=== PATIENT | female | born 1950 | race Two or more races ===

== ENCOUNTER 2018-07-18 08:40 | Inpatient (IN) | payer MEDICARE, OTHER ==
[~2018-07-18] VITALS: Ht 160 cm; Wt 76.3 kg
[~2018-07-18 08:40] MED LIST: ASPI-605 PO; ENAL20TA70 PO; ESOM40CA PO; FLUT1DIS3 INH; HYDR-3974 PO; HYDR25SU33 RC; RIVA10TA PO; Sennosides PO; ZOLP5TAB2 PO; [UNRECOGNIZED DRUG - CODE] PO
--- NOTE | 2018-07-18 08:54 | NUR ---
DR BRAGG AT BEDSIDE FOR EVAL.
[2018-07-18] MEDS ORDERED: ASPIRIN 81 MG TAB.CHEW PO ONE (09:00)
[2018-07-18] MEDS ORDERED: ASPIRIN 81 MG TAB.CHEW ONE (09:00)
--- NOTE | 2018-07-18 09:03 | NUR ---
PT STATES TOOK ASP 81MG AT HOME PRIOR TO EMS ARRIVAL. VERBAL ORDER FOR ASPIRIN 81MG PO GIVEN INSTEAD OF 162MG.
--- NOTE | 2018-07-18 09:17 | NUR ---
RADIOLOGY AT BEDSIDE FOR CHEST XRAY.
--- NOTE | 2018-07-18 09:22 | NUR ---
MAP EDITOR AT BEDSIDE FOR EVAL.
[2018-07-18 09:27] LABS: BASOPHILS % (AUTO) 0.7 % (0.0-2.0); EOSINOPHILS % (AUTO) 0.7 % (0.0-6.0); HEMATOCRIT 42 % (33-45); HEMOGLOBIN 13.8 g/dL (11.5-14.8); LYMPHOCYTES # (AUTO) 0.8 /CMM (0.8-4.8); LYMPHOCYTES % (AUTO) 13.5 % (20.0-44.0); MEAN CORPUSCULAR HGB CONC 33 g/dl (31.0-36.0); MEAN CORPUSCULAR VOLUME 87 fL (82-100); MONOCYTES # (AUTO) 0.3 /CMM (0.1-1.30); MONOCYTES % (AUTO) 5.1 % (2.0-12.0); NEUTROPHILS # (AUTO) 4.9 /CMM (1.8-8.9); PLATELET COUNT (AUTO) 153 /CMM (150-450); RED BLOOD CELL COUNT(AUTO) 4.76 MIL/uL (4.0-5.2); WHITE BLOOD COUNT (AUTO) 6.1 K/uL (4.3-11.0)
[2018-07-18 09:35] LABS: CALCIUM, SERUM 8.8 mg/dL (8.5-10.1); CREATININE 0.8 mg/dL (0.6-1.3); POTASSIUM 4.1 mmol/L (3.5-5.1)
[2018-07-18] MEDS ORDERED: SENN-168 PO (09:59)
[2018-07-18] MEDS ORDERED: RIVA10TA PO (09:59)
--- NOTE | 2018-07-18 10:13 | NUR ---
PANEL ON-CALL PAGED
[2018-07-18] MEDS ORDERED: ONDANSETRON HCL/PF 4 MG/2 ML VIAL IVP PRN (10:30)
[2018-07-18] MEDS ORDERED: MAG HYDROX/AL HYDROX/SIMETH 30 ML UDC PO PRN (10:30)
[2018-07-18] MEDS ORDERED: Z GUARD REMEDY 2 OZ OINT TP PRN (10:30)
[2018-07-18] MEDS ORDERED: HYDROCODONE/APAP 5/325MG 1 EACH TABLET PO PRN (10:30)
[2018-07-18] MEDS ORDERED: ACETAMINOPHEN 325 MG TABLET PO PRN (10:30)
[2018-07-18] MEDS ORDERED: MAGNESIUM HYDROXIDE 30 ML UDC PO PRN (10:30)
--- NOTE | 2018-07-18 10:40 | NUR ---
TELE: [phone]
[2018-07-18] MEDS ORDERED: SENNOSIDES 8.6 MG TABLET PO PRN (11:00)
--- NOTE | 2018-07-18 11:03 | NUR ---
REPORT GIVEN TO YARELIS. AWAITING TRANSFER TO FLOOR.
[2018-07-18] MEDS ORDERED: HYDROMORPHONE 1 MG/1 ML DISP.SYRIN IV PRN (11:30)
[2018-07-18] MEDS ORDERED: ENALAPRIL MALEATE (10 MG) 10 MG TABLET PO SCH (11:30)
[2018-07-18 12:00] VITALS: BP 132/77
[2018-07-18] MEDS ORDERED: ENOXAPARIN SODIUM 80 MG/0.8 ML DISP.SYRIN SQ SCH (12:00)
[2018-07-18] MEDS: NITROGLYCERIN PACKET 1 GM PACKET TOP SCH ×3 (12:24→22:05)
[2018-07-18] MEDS: METOPROLOL TARTRATE 25 MG TABLET PO SCH ×2 (12:25→17:00)
[2018-07-18] MEDS: ENOXAPARIN SODIUM 80 MG/0.8 ML DISP.SYRIN SQ SCH ×2 (12:32→21:00)
[2018-07-18 13:00] VITALS: BP 132/77
--- NOTE | 2018-07-18 13:00 | NUR ---
ADMISSION NOTES PATIENT ADMITTED FROM ER 68Y/OLD FEMALE ON DX OF CHEST PAIN. PATIENT A/O X4, UZBEK SPEAKER, AMBULATORY SELF CARE. PATIENT HAS NO ACUTE RESPIRATORY DISTRESS, WAS COMPLAINING OF UPPER LEFT SIDE CHEST DULL PAIN 3/10 PER PAIN SCALE, BUT REFUSED PAIN MEDICATION. SCHEDULED MEDICATION ADMINISTERED, V/S TAKEN BP -132-/77, R-16, P-65, O2-97 ROOM AIR, T-97.7. PATIENT HAS IV ACCESS ON RIGHT AC AREA INTACT. SKIN ASSESSMENT DONE INTACT. PATIENT USING BATHROOM. CALL LIGHT WITHIN TO REACH. Dr. CARBALLO AWARE OF PATIENT CONDITION AND MEDICATION. CONTINUED MONITORING. Addendum: 07/18/18 at 1812 by JAQUELINE BIGGS RN PT TELE , EVAPORATOR ON, [id number].
[2018-07-18 16:00] VITALS: BP 108/64
--- NOTE | 2018-07-18 17:00 | NUR ---
RN NOTES PATIENT STABLE IN THE BED, SCHEDULED MEDICATION NOT ADMINISTERED BECAUSE BP -108/64, P-76, PATIENT COMPLAINING OF PAIN LEFT UPPER CHEST 2/10 PER PAIN SCALE. CALL LIGHT WITHIN TO REACH, CONTINUED MONITORING, PATIENT EATING, FAMILY NEXT TO THE BED.
--- NOTE | 2018-07-18 18:03 | NUR ---
RN NOTES ADMINISTERED TYLENOL 650 MG/PO PRN FOR CHEST PAIN 08/25 PER PATIENT REQUEST, CONTINUED MONITORING.
--- NOTE | 2018-07-18 18:40 | NUR ---
RN NOTES PATIENT STABLE, MEDICATION WERE ADMINISTERED FOR PAIN EFFECTIVE, PATIENT GOING TO TRANSFER TO THE [facility] FOR CARDIAC CATHETERIZATION PER DR BENITEZ. GET CALL FROM [facility] TBA FORM BE FAXED FOR PATIENT BED. ENDORSED ONCOMING NURSE FOR PLAN OF CARE.
--- NOTE | 2018-07-18 19:04 | NUR ---
RN NOTES RECEIVE PT IN THE BED A/O X 4, TELE MONITOR WITH READING OF SR 71. IN STABLE CONDITION, NOT IN DISTRESS, SAFETY MEASURES IN PLACE. WILL CONTINUE TO MONITOR.
[2018-07-18 20:00] VITALS: BP 111/71
--- NOTE | 2018-07-18 21:00 | NUR ---
RN NOTES CALLED ROSA (DAUGHTER) INFORMED PT TRANSFER FOR CARDIAC CATH ROSA APPRECIATIVE TO NURSES
--- NOTE | 2018-07-18 21:38 | NUR ---
PAGED AND SPOKE TO DR. GERMÁN Bull RELAYED IF WE GONNA GIVE LOVENOX PER DR. DUNLAP HOLD LOXENOX READ BACK AND VERIFIED ORDERS NOTED AND CARRIED OUT
--- NOTE | 2018-07-18 21:40 | NUR ---
REPORT GIVEN TO PATITO JUSTIN RN ANGELA NORTH
--- NOTE | 2018-07-18 21:41 | NUR ---
RN NOTES: MD MADE AWARE OF PT'S STATUS, FOR TRANSFER TO [facility] FOR CARDIAC CATHETERIZATION, OBTAINED DC ORDER FROM MD, INFORMED FAMILY AND PT'S AWARENESS OF PLAN. SPOKED WITH PT, OBTAINED CONSENT FOR TRANSFER, ALL DC PAPER WORKS AND TRANSFER PAPERS SIGNED BY PT HERSELF, EDUCATION PROVIDED TO PT, INVENTORY OF BELONGINGS COMPLETED BY MARK VERA. ALL CONVERSATION/COMMUNICATION TRANSLATED BY JAPANESE SPEAKING STAFF. CD IMAGES PROVIDED.
[2018-07-18] MEDS ORDERED: ATORVASTATIN 40 MG TABLET PO SCH (22:00)
[2018-07-18 22:05] VITALS: BP 126/69
[2018-07-18] MEDS ORDERED: hydrALAZINE HCL IV 20 MG VIAL IV PRN (22:30)
--- NOTE | 2018-07-18 22:38 | NUR ---
RN NOTES: RECEIVED CALL FROM ROSALINDA RN FROM [facility], STATED THERE'S A ROOM CHANGE, PT WILL BE GOING TO ROOM 4311-1, AND WAS TOLD NO NEED TO CALL FOR ANOTHER REPORT PT WILL BE GOING TO SAME FLOOR ONLY ROOM WAS CHANGED
--- NOTE | 2018-07-18 23:15 | NUR ---
PATIENT DISCHARGE PATIENT LEFT AT 2312, PATIENT ON STABLE CONDITION NO S/S OF DISTRESS NOTED, NO CHEST PAIN, NO HEADACHE, NO NAUSEA AND VOMITING, NO COMPLAINS OF PAIN, VS STABLE, TOLERATING ROOM AIR, HEALTH EDUCATION AND EXIT CARE WAS PROVIDED, IV HEPLOCK TO RAC 20 INTACT AND PATENT REMAINED PER [facility] NURSE PATITO. MD AWARE OF PATIENT BEING DISCHARGE, ALL BELONGINGS WAS TAKEN, PATIENT LEFT WITH 2 EMT VIA AMBULANCE.
[2018-07-19] MEDS ORDERED: PANTOPRAZOLE 40 MG TABLET.DR PO SCH (07:30)
[2018-07-19] MEDS ORDERED: CALCIUM CARB 600MG /VIT D 1 EACH TABLET PO SCH (09:00)
[2018-07-19] MEDS ORDERED: ASPIRIN 325 MG TABLET PO SCH (09:00)
[2018-07-19] MEDS ORDERED: FLUTICASONE/VILANTEROL 1 EACH BLST.W.DEV IH SCH (09:00)
== END 2018-07-18 23:10 | disposition short-term general hospital (02) | DRG 282 ==
LOC: ER 08:43 → TELE 10:46
PROVIDERS: ADMIT Internal Medicine; ATTEND Internal Medicine
DX: I21.4 Non-ST elevation (NSTEMI) myocardial infarction (principal); I10 Essential (primary) hypertension; K21.9 Gastro-esophageal reflux disease without esophagitis; Z96.641 Presence of right artificial hip joint; Z79.01 Long term (current) use of anticoagulants; J30.9 Allergic rhinitis, unspecified
CPT/HCPCS: 36415; 71045-TC; 80048-TC; 84484-TC; 85025-TC; 85730-TC; 87081-TC; 93307-TC; G0378; J1650

== ENCOUNTER 2022-05-06 14:35 | Inpatient (IN) | payer MEDICARE, OTHER ==
[~2022-05-06] VITALS: Ht 167.6 cm; Wt 82.6 kg
[~2022-05-06 14:35] MED LIST changes: -HYDR-3974 PO; -HYDR25SU33 RC; +SENN-261 PO; -Sennosides PO
--- NOTE | 2022-05-06 14:50 | NUR ---
Received pt 71 yrs famel came from home by lucinda S/P ground level fall awake and alert slap and fall at home c/o pain on lt hip with shorting and diformity
--- NOTE | 2022-05-06 14:55 | NUR ---
Examin by DR. SINHA
--- NOTE | 2022-05-06 15:00 | NUR ---
[facility]
--- NOTE | 2022-05-06 15:29 | NUR ---
CAKE ICER AT BEDSIDE FOR BLOOD DRAW
--- NOTE | 2022-05-06 15:30 | NUR ---
dr tatum (ortho) paged talking to dr gomez.
--- NOTE | 2022-05-06 15:38 | NUR ---
called nursing motion picture equipment supervisor for m/s bed.
[2022-05-06 15:42] LABS: BASOPHILS % (AUTO) 0.4 % (0.0-2.0); EOSINOPHILS % (AUTO) 1.1 % (0.0-6.0); HEMATOCRIT 41 % (33-45); HEMOGLOBIN 13.9 g/dL (11.5-14.8); LYMPHOCYTES # (AUTO) 1.2 K/uL (0.8-4.8); LYMPHOCYTES % (AUTO) 12.8 % (20.0-44.0); MEAN CORPUSCULAR HGB CONC 34 g/dl (31.0-36.0); MEAN CORPUSCULAR VOLUME 85 fL (82-100); MONOCYTES # (AUTO) 0.4 K/uL (0.1-1.30); MONOCYTES % (AUTO) 4.3 % (2.0-12.0); NEUTROPHILS # (AUTO) 7.5 K/uL (1.8-8.9); NEUTROPHILS % (AUTO) 81.4 % (43.0-81.0); PLATELET COUNT (AUTO) 166 K/uL (150-450); RED BLOOD CELL COUNT(AUTO) 4.87 MIL/uL (4.0-5.2); WHITE BLOOD COUNT (AUTO) 9.3 K/uL (4.3-11.0)
[2022-05-06] MEDS ORDERED: MECL-159 PO (15:52)
[2022-05-06] MEDS ORDERED: AMLO-213 PO (15:52)
[2022-05-06] MEDS ORDERED: DOCU50LI PO (15:52)
[2022-05-06] MEDS ORDERED: CLON0.1T MT (15:52)
[2022-05-06] MEDS ORDERED: MORPHINE SULFATE INJ 2 MG/ML DISP.SYRIN IV ONE (16:00)
[2022-05-06] MEDS ORDERED: MORPHINE SULFATE INJ 2 MG/ML DISP.SYRIN ONE (16:03)
[2022-05-06 16:09] LABS: CALCIUM, SERUM 9.1 mg/dL (8.5-10.1); CREATININE 0.9 mg/dL (0.6-1.3); POTASSIUM 4.2 mmol/L (3.5-5.1)
--- NOTE | 2022-05-06 16:15 | NUR ---
TEMO STEVENSON SENT TO LAB
--- NOTE | 2022-05-06 16:37 | NUR ---
called [facility]. dr angelo on phone talking to dr gomez.
[2022-05-06] MEDS ORDERED: ZOLPIDEM TARTRATE 5 MG TABLET PO PRN (17:30)
[2022-05-06] MEDS ORDERED: MAGNESIUM HYDROXIDE 30 ML UDC PO PRN (17:30)
[2022-05-06] MEDS ORDERED: HYDROCODONE/APAP 5/325MG TABLET PO PRN (17:30)
[2022-05-06] MEDS ORDERED: HYDROCODONE/APAP 10/325MG TABLET PO PRN (17:30)
[2022-05-06] MEDS ORDERED: CLONIDINE HCL 0.1 MG TABLET PO PRN (17:30)
[2022-05-06] MEDS ORDERED: ENALAPRIL MALEATE (10 MG) 10 MG TABLET PO SCH (17:30)
[2022-05-06] MEDS ORDERED: ONDANSETRON HCL/PF 4 MG/2 ML VIAL IVP PRN (17:30)
[2022-05-06] MEDS ORDERED: MAG HYDROX/AL HYDROX/SIMETH 30 ML UDC PO PRN (17:30)
[2022-05-06] MEDS ORDERED: ACETAMINOPHEN 325 MG TABLET PO PRN (17:30)
[2022-05-06] MEDS ORDERED: AMLODIPINE BESYLATE 10 MG TABLET ONE (17:32)
[2022-05-06] MEDS: AMLODIPINE BESYLATE 10 MG TABLET PO SCH (17:40)
--- NOTE | 2022-05-06 17:52 | NUR ---
WATING for moniter bed
[2022-05-06] MEDS ORDERED: LISINOPRIL (20MG) 20 MG TABLET PO SCH (18:00)
[2022-05-06] MEDS ORDERED: LISINOPRIL (20MG) 20 MG TABLET ONE (18:16)
[2022-05-06] MEDS: LISINOPRIL (10MG) 10 MG TABLET PO SCH (18:23)
--- NOTE | 2022-05-06 18:44 | NUR ---
ELISEO COSME SENT TO LAB
[2022-05-06] MEDS ORDERED: ONDANSETRON HCL/PF 4 MG/2 ML VIAL ONE (18:46)
[2022-05-06] MEDS ORDERED: KETOROLAC TROMETHAMINE INJ 30 MG/ML VIAL ONE (18:49)
[2022-05-06] MEDS: KETOROLAC TROMETHAMINE INJ 30 MG/ML VIAL IV PRN (18:55)
[2022-05-06] MEDS ORDERED: ONDANSETRON HCL/PF - ER 4 MG/2 ML VIAL IV ONE (19:00)
--- NOTE | 2022-05-06 19:29 | NUR ---
HAND OFF ELFEGO SHIN
--- NOTE | 2022-05-06 19:30 | NUR ---
PT IS AAOX4. ABLE TO MAKE NEEDS KNOWN. POSITIONED COMFORTABLY. HAS PERIPHERAL LINE ON LEFT AC G20. PATIENT IS COMPLAINING OF MILD PAIN ON LEFT HIP AREA. WILL CONTINUE TO MONITOR PATIENT.
--- NOTE | 2022-05-06 21:48 | NUR ---
IFC F16 INSERTED. DRAINING 600ML URINE
--- NOTE | 2022-05-06 23:07 | NUR ---
ASSIGNED 320
--- NOTE | 2022-05-07 01:32 | NUR ---
REPORT GIVEN TO ALEIDA MCCORMICK
[2022-05-07 02:10] VITALS: BP 134/76
--- NOTE | 2022-05-07 02:17 | NUR ---
TRANSFERRED PT TO ROOM
--- NOTE | 2022-05-07 02:18 | NUR ---
ELIGIBILITY MANAGER NOTES: --AT 0128 REPORT GIVEN BY GLARE/RN FROM ER, NEW ADMISSION FROM HOME FEMALE, 70 Y.O., S/P GLF WITH SEVERE LEFT HIP PAIN, ADMITTING DIAGNOSIS: LEFT FEMUR NECK FRACTURE, X-RAY OF THE PELVIS DONE: MILDLY DISPLACE SUBCAP[facility] FRACTURE OF THE LEFT FEMORAL NECK.LEFT LEG WAS EXTERNALLY ROTATED, A/OX4, NKDA, MCCRAY CATH IN SITE F-16/10 ML, V/S HER BP IS HIGH FROM ER SBP>200 SECONDARY TO PAIN AND ANXIOUS, RECEIVED THE FOLLOWING MEDICATION IN ER:1)VASOTEC 20 MG AT 1740 2)MORPHINE 2 MG AT 1613 3)ZOFRAN 4 MG AT 1849 4) PRINIVIL 40 MG AT 1800 5)TORADOL 30 MG AT 1855. COVID VACCINE COMPLETED, MRSA SWAB DONE, COVID RAPID(-), IV CANNULA ON THE LAC G#20.VACCINATION IS UP TO DATE. -AT 0205 ARRIVED IN THE MED-SURG UNIT ACCOMPANIED BY 2 ER STAFF VIA [facility], SHE HAS EXCRUCIATING PAIN DURING TRANSFER FROM [facility] TO THE BED,RN WANTS TO DO BODY ASSESSMENT BUT UNABLE TO REPOSITION HER TO SEE THE LEFT HIP AND BACK AREA SECONDARY TO PAIN, BODY ASSESSMENT DONE ON THE EXPOSED AREA ONLY:1)REDNESS ON THE FACIAL AREA 2)SWELLING AND DISCOLORATION ON THE RLE, LLE IMMOBILIZED, THE ENTIRE BACK WAS NOT SEEN.SHE IS A/OX4, PLEASANT AND COOPERATIVE, LOOKS ANXIOUS BLAMING HER SELF FOR THE INCIDENT, HER BP WAS HIGH,WILL RE-CHECK LATER, RN INSTRUCT TO DO SOME BREATHING EXERCISE TO RELAX HER. ORIENTED TO UNIT AND STAFF, KEPT CALL LIGHT WITHIN EASY REACH, WILL GIVE PAIN MEDICATION 04/24, ORTHO CONSULT DONE WITH DR. GRIFFITH FOR SURGERY TOMORROW:TOTAL LEFT HIP ARTHROPLASTY AT 1000.FOR LABS IN THE MORNING.NON LABORED BREATHING SPO2-98% ROOM AIR.SAFETY PRECAUTION OBSERVED.MCCRAY CATH DRAINING WELL OF YELLOWISH COLORED URINE AT 50 CC LEVEL.
[2022-05-07] MEDS: MORPHINE SULFATE INJ 2 MG/ML DISP.SYRIN IV PRN ×2 (02:41→08:17)
--- NOTE | 2022-05-07 02:41 | NUR ---
RN NOTES: PATIENT WAS GRIMACING AND GUARDING POSITION WHILE SHE WAS TRANSFERRED FROM [facility] TO THE BED,SHE IS ASKING FOR HER PAIN MEDICATION UPON ARRIVAL TO THE UNIT,HER BP WAS HIGH SECONDARY TO PAIN.IMMOBILIZED LEFT HIP. -PRN PAIN MEDS GIVEN FOR 10/10 PAIN.
--- NOTE | 2022-05-07 02:45 | NUR ---
RN NOTES: RN WAS ABOUT TO GIVE HER PAIN MEDICATION PER HER REQUEST, INITIALLY SHE WAS HESITANT, RN EXPLAINED SHE WILL BE KEPT NPO, PRIOR TO SURGERY AND THIS IS HER PRESCRIBED PAIN MEDICATION, WHICH WAS ALSO GIVEN TO HER IN ER AWHILE AGO.THEN SHE AGREE, GIVEN SLOWLY AND FLUSHING DONE, TOLERATED WELL. Addendum: 05/07/22 at 1143 by LEW HESTER RN ADDED NOTES: CHECK V/S AGAIN AFTER 30 MINUTES BP-134/76 PA-95
[2022-05-07 03:29] VITALS: BP 134/76
--- NOTE | 2022-05-07 03:49 | NUR ---
RN NOTES: -ABLE TO SLEEP AND REST HER BLOOD PRESSURE WAS MORE LOWER COMPARED UPON HER ARRIVAL FROM ER, SHE WAS SO ANXIOUS AND WORRIED LATEST BP-130/80.
--- NOTE | 2022-05-07 04:23 | NUR ---
RN NOTES: -KEPT NPO, ASLEEP, KEPT IN COMFORTABLE POSITION, LLE IMMOBILIZED.KEPT CALL LIGHT WITHIN EASY REACH.
[2022-05-07 05:56] LABS: BASOPHILS % (AUTO) 0.3 % (0.0-2.0); EOSINOPHILS % (AUTO) 1.1 % (0.0-6.0); HEMATOCRIT 40 % (33-45); HEMOGLOBIN 13.3 g/dL (11.5-14.8); LYMPHOCYTES # (AUTO) 1.1 K/uL (0.8-4.8); MEAN CORPUSCULAR HGB CONC 33 g/dl (31.0-36.0); MEAN CORPUSCULAR VOLUME 85 fL (82-100); MONOCYTES # (AUTO) 0.4 K/uL (0.1-1.30); MONOCYTES % (AUTO) 4.3 % (2.0-12.0); NEUTROPHILS # (AUTO) 7.5 K/uL (1.8-8.9); NEUTROPHILS % (AUTO) 82.3 % (43.0-81.0); PLATELET COUNT (AUTO) 160 K/uL (150-450); RED BLOOD CELL COUNT(AUTO) 4.73 MIL/uL (4.0-5.2); WHITE BLOOD COUNT (AUTO) 9.1 K/uL (4.3-11.0)
--- NOTE | 2022-05-07 06:40 | NUR ---
RN NOTES: ABLE TO SLEEP AND REST AFTER HER PAIN MEDICATION, RN EXPLAINED TO HER SHE NEEDS TO SIGN THE CONSENT FOR HER PROCEDURE, SHE SAID "LATER ON I WANT TO SLEEP", KEPT NPO, KEPT IN COMFORTABLE POSITION, CALL LIGHT WITHIN EASY EACH, NON LABORED BREATHING.ENDORSED FOR CONTINUITY OF CARE, NEED TO OBTAIN CONSENT AND TO COMPLETE PRE-OP CHECK LIST, MCCRAY CATH [id number].FOR LABS THIS MORNING
[2022-05-07 06:49] LABS: CALCIUM, SERUM 8.5 mg/dL (8.5-10.1); PHOSPHORUS 4.3 mg/dL (2.5-4.9); POTASSIUM 4.2 mmol/L (3.5-5.1)
--- NOTE | 2022-05-07 07:00 | NUR ---
MS RN OPENING NOTES PATIENT LAYING IN BED, A/O X 3, ABLE TO MAKE NEEDS KNOWN, TOLERATING WELL ON ROOM AIR WITH NO S/S RESPIRATORY DISTRESS. NPO STATUS FOR UPCOMING SURGERY. R AC # 20 G SL CLEAN, INTACT, AND FLUSHING WELL. MCCRAY CATHETER IN PLACE DRAINING CLEAR YELLOW URINE TO GRAVITY. SAFETY MEASURES IN PLACE: BED IN LOWEST LOCKED POSITION, SIDE RAILS UP X 2, CALL LIGHT WITHIN REACH. WILL CONTINUE TO MONITOR.
[2022-05-07] MEDS: PANTOPRAZOLE 40 MG TABLET.DR PO SCH (07:30)
--- NOTE | 2022-05-07 08:31 | NUR ---
MS RN NOTES PATIENT COMPLAINT OF 7/10 LEFT HIP PAIN AND REQUESTING PAIN MEDICATION. PRN MORPHINE 2 MG IVP ADMINISTERED ORDERED. WILL CONTINUE TO MONITOR FOR S/S PAIN. ALL CONSENTS OBTAINED FOR LEFT HIP ARTHROPLASTY.
[2022-05-07] MEDS: DOCUSATE SODIUM LIQ 100 MG/10 ML UDC PO SCH ×3 (08:32→17:00)
[2022-05-07] MEDS: AMLODIPINE BESYLATE 10 MG TABLET PO SCH (08:32)
[2022-05-07] MEDS: LISINOPRIL (10MG) 10 MG TABLET PO SCH (08:32)
[2022-05-07] MEDS ORDERED: ANESTHESIA TRAY IN PYXIS 1 EA TRAY MC ONE (09:15)
[2022-05-07] MEDS ORDERED: POLYMYXIN B SULFATE 500,000 UNITS ONE (09:15)
[2022-05-07] MEDS ORDERED: BUPIVACAINE 0.25% 75 MG/30 ML VIAL ONE (09:16)
[2022-05-07] MEDS ORDERED: FENTANYL PF 100MCG/2ML AMPUL ONE (09:36)
[2022-05-07] MEDS ORDERED: ROCURONIUM BROMIDE 50 MG/5 ML ONE (09:36)
[2022-05-07] MEDS ORDERED: TRANEXAMIC ACID 3,000 MG in SODIUM CHLORIDE IRRIG SOLUTION 70 ML IR ONE (10:00)
[2022-05-07] MEDS ORDERED: ONDANSETRON HCL/PF 4 MG/2 ML VIAL ONE (12:41)
[2022-05-07 12:59] LABS: HEMOGLOBIN 11.1 g/dL (11.5-14.8)
[2022-05-07] MEDS ORDERED: SENNOSIDES 8.6 MG TABLET PO PRN (13:30)
[2022-05-07] MEDS ORDERED: ONDANSETRON HCL/PF 4 MG/2 ML VIAL IVP PRN (13:30)
[2022-05-07] MEDS ORDERED: BISACODYL SUPP (10 MG) 10 MG/SUPP.RECT SUPP.RECT RC PRN (13:30)
[2022-05-07] MEDS ORDERED: HYDROCODONE/APAP 5/325MG TABLET PO PRN (13:30)
[2022-05-07] MEDS ORDERED: ACETAMINOPHEN 325 MG TABLET PO PRN (13:30)
[2022-05-07] MEDS ORDERED: DOCUSATE SODIUM 100 MG CAPSULE PO PRN (13:30)
[2022-05-07] MEDS: ANCEF 1 GM/50 ML D5W IV SCH ×2 (18:34)
[2022-05-07 20:00] VITALS: BP 116/64
--- NOTE | 2022-05-07 20:00 | NUR ---
MS RN OPENING NOTES: RECEIVED PATIENT AWAKE IN BED, IN LOW POSTION CALL LIGHTS WITHIN REACH, NO COMPLAIN OF PAIN AND DISCOMFORT AT THIS TIME, ON ROOM AIR SATURATING WELL, PATIENT IS A/OX3 ABLE TO MAKE NEEDS KNOWN, IV LINE AT RAC#20SL, ON MCCRAY CATHETER- 50CC URINE OUTPUT , PATIENT KEPT CLEAN AND DRY ALL NEEDS MET WILL CONTINUE TO MONITOR
[2022-05-07 20:35] VITALS: BP 116/64
[2022-05-08] MEDS: ANCEF 1 GM/50 ML D5W IV SCH ×2 (02:53)
--- NOTE | 2022-05-08 06:10 | NUR ---
MS RN CLOSING NOTES: PATIENT SLEEP IN BED COMFORTABLY, BED IN LOW POSITION CALL LIGHTS WITHIN REACH, ON ROOM AIR SATURATING WELL, PATIENT IS A/OX3-4 ABLE TO MAKE NEEDS KNOWN, PATIENT IS S/P TOTAL LEFT HIP ARTHROPLASTY, NO COMPLAIN OF PAIN AND OR FACIAL GRIMACING, KEPT CLEAN AND DRY ALL NEEDS MET ENDORSE TO INCOMING SHIFT.
[2022-05-08 07:44] LABS: ALKALINE PHOSPHATASE 53 U/L (46-116); ASPARTATE AMINOTRANSFERASE 24 U/L (15-37); BASOPHILS % (AUTO) 0.1 % (0.0-2.0); BILIRUBIN,TOTAL 0.5 mg/dL (0.2-1.0); CALCIUM, SERUM 8.5 mg/dL (8.5-10.1); CARBON DIOXIDE 23 mmol/L (21-32); CHLORIDE 106 mmol/L (98-107); EOSINOPHILS % (AUTO) 0.1 % (0.0-6.0); GLUCOSE 146 mg/dL (74-106); HEMATOCRIT 29 % (33-45); HEMOGLOBIN 9.8 g/dL (11.5-14.8); LYMPHOCYTES # (AUTO) 0.8 K/uL (0.8-4.8); LYMPHOCYTES % (AUTO) 6.9 % (20.0-44.0); MAGNESIUM 2.1 mg/dL (1.8-2.4); MEAN CORPUSCULAR HGB CONC 33 g/dl (31.0-36.0); MEAN CORPUSCULAR VOLUME 85 fL (82-100); MONOCYTES # (AUTO) 0.8 K/uL (0.1-1.30); MONOCYTES % (AUTO) 6.4 % (2.0-12.0); NEUTROPHILS # (AUTO) 10.4 K/uL (1.8-8.9); NEUTROPHILS % (AUTO) 86.5 % (43.0-81.0); PHOSPHORUS 5.5 mg/dL (2.5-4.9); PLATELET COUNT (AUTO) 160 K/uL (150-450); POTASSIUM 4.6 mmol/L (3.5-5.1); RED BLOOD CELL COUNT(AUTO) 3.45 MIL/uL (4.0-5.2); SODIUM SERUM 137 mmol/L (136-145); UREA NITROGEN, BLOOD 25 mg/dL (7-18); WHITE BLOOD COUNT (AUTO) 12.1 K/uL (4.3-11.0)
[2022-05-08 08:00] VITALS: BP 101/68
[2022-05-08 08:06] LABS: ALANINE AMINOTRANSFERASE 26 U/L (12-78)
[2022-05-08] MEDS: AMLODIPINE BESYLATE 10 MG TABLET PO SCH (09:00)
[2022-05-08] MEDS: LISINOPRIL (10MG) 10 MG TABLET PO SCH (09:00)
[2022-05-08] MEDS: DOCUSATE SODIUM LIQ 100 MG/10 ML UDC PO SCH ×3 (09:00→17:00)
[2022-05-08] MEDS: KETOROLAC TROMETHAMINE INJ 30 MG/ML VIAL IV PRN (09:07)
[2022-05-08] MEDS: PANTOPRAZOLE 40 MG TABLET.DR PO SCH (09:07)
[2022-05-08] MEDS: ENOXAPARIN SODIUM 40 MG/0.4 ML DISP.SYRIN SQ SCH (09:10)
[2022-05-08 16:00] VITALS: BP 102/60
--- NOTE | 2022-05-08 18:40 | NUR ---
RN CLOSING NOTE PATIENT RECEIVED IN BED AND SLEEPING. A/O X4 AND ABLE TO VERBALIZE NEEDS THROUGHOUT SHIFT. IV ACCESS TO RAC REMAINED INTACT AND PATENT. SALINE LOCKED AT THIS TIME. PATIENT C/O PAIN TO SURGICAL SITE OF LEFT HIP ONCE ON SHIFT. RECEIVED TORADOL X1 VIA IV PUSH. MEDICATION EFFECTIVE. NO OTHER C/O PAIN OR OBSERVATIONS OF ACUTE DISTRESS OBSERVED. PATIENT OBSERVED WORKING WITH PHYSICAL THERAPY ON SHIFT. TOLERATED TREATMENT WELL. CONTINUED TO TOLERATE CARDIAC DIET WELL THROUGHOUT SHIFT. SURGICAL SITE/INCISIONS KEPT DRY WITH NO S/SX OF TRAUMA, BLEEDING, INFECTION. MCCRAY CATHETER OUTPUT OF 500CC ON SHIFT. SAFETY PRECAUTIONS IN PLACE WITH BED LOW AND LOCKED. CALL LIGHT WITHIN REACH. WILL CONTINUE TO MONITOR.
--- NOTE | 2022-05-08 19:30 | NUR ---
MS RN OPENING NOTES: RECEIVED PATIENT AWAKE IN BED, BED IN LOW POSITION, CALL LIGHTS WITHIN REACH, NO COMPLAIN OF PAIN AND DISCOMFORT AT THIS TIME, ON ROOM AIR SATURATING WELL, NO SOB WAS OBSERVED, ON MCCRAY CATHETER-30CC URINE OUTPUT, PATIENT IS A/OX3-4 ABLE TO MAKE NEEDS KNOWN, IV LINE AT RAC#20SL, PATIENT KEPT CLEAN AND DRY ALL NEEDS MET WILL CONTINUE TO MONITOR.
[2022-05-08 20:00] VITALS: BP 110/68
--- NOTE | 2022-05-09 06:16 | NUR ---
MS RN CLOSING NOTES: PATIENT SLEEP IN BED COMFORTABLY, AROUSABLE TO VERBAL STIMULI, BED IN LOW POSITION CALL LIGHTS WITHIN REACH, NO COMPLAIN OF PAIN AND DISCOMFORT AT THIS TIME, ON ROOM AIR SATURATING WELL, PATIENT ON MCCRAY CATHETER- 400 CC URINE OUTPUT. KEPT CLEAN AND DRY ALL NEEDS MET ENDORSE TO INCOMING SHIFT.
[2022-05-09 06:57] LABS: BASOPHILS % (AUTO) 0.2 % (0.0-2.0); EOSINOPHILS % (AUTO) 1.1 % (0.0-6.0); HEMATOCRIT 26 % (33-45); HEMOGLOBIN 8.7 g/dL (11.5-14.8); LYMPHOCYTES # (AUTO) 1.3 K/uL (0.8-4.8); LYMPHOCYTES % (AUTO) 17.9 % (20.0-44.0); MEAN CORPUSCULAR HGB CONC 34 g/dl (31.0-36.0); MEAN CORPUSCULAR VOLUME 86 fL (82-100); MONOCYTES # (AUTO) 0.6 K/uL (0.1-1.30); MONOCYTES % (AUTO) 8.7 % (2.0-12.0); NEUTROPHILS # (AUTO) 5.2 K/uL (1.8-8.9); NEUTROPHILS % (AUTO) 72.1 % (43.0-81.0); PLATELET COUNT (AUTO) 136 K/uL (150-450); RED BLOOD CELL COUNT(AUTO) 3.01 MIL/uL (4.0-5.2); WHITE BLOOD COUNT (AUTO) 7.2 K/uL (4.3-11.0)
[2022-05-09 07:00] VITALS: BP 126/62
[2022-05-09 07:25] LABS: ALANINE AMINOTRANSFERASE 24 U/L (12-78); ALBUMIN 2.9 g/dL (3.4-5.0); ALKALINE PHOSPHATASE 45 U/L (46-116); ASPARTATE AMINOTRANSFERASE 17 U/L (15-37); BILIRUBIN,TOTAL 0.4 mg/dL (0.2-1.0); CALCIUM, SERUM 8.3 mg/dL (8.5-10.1); CARBON DIOXIDE 27 mmol/L (21-32); CHLORIDE 107 mmol/L (98-107); GLUCOSE 111 mg/dL (74-106); MAGNESIUM 2.2 mg/dL (1.8-2.4); PHOSPHORUS 2.8 mg/dL (2.5-4.9); POTASSIUM 4.2 mmol/L (3.5-5.1); SODIUM SERUM 140 mmol/L (136-145); TOTAL PROTEIN, SERUM 5.8 g/dL (6.4-8.2); UREA NITROGEN, BLOOD 34 mg/dL (7-18)
--- NOTE | 2022-05-09 07:50 | NUR ---
RN OPENING NOTE PATIENT RECEIVED IN BED AND SLEEPING. A/O X4. NO RESPIRATORY DISTRESS OBSERVED UPON ASSESSMENT. SAFETY MEASURES INTACT WITH BED LOW AND LOCKED. CALL LIGHT WITHIN REACH. WILL CONT TO MONITOR.
[2022-05-09 08:59] VITALS: BP 126/62
[2022-05-09] MEDS: DOCUSATE SODIUM LIQ 100 MG/10 ML UDC PO SCH ×2 (08:59→18:10)
[2022-05-09] MEDS: LISINOPRIL (10MG) 10 MG TABLET PO SCH (08:59)
[2022-05-09] MEDS: AMLODIPINE BESYLATE 10 MG TABLET PO SCH (08:59)
[2022-05-09] MEDS: ENOXAPARIN SODIUM 40 MG/0.4 ML DISP.SYRIN SQ SCH (09:01)
[2022-05-09] MEDS: PANTOPRAZOLE 40 MG TABLET.DR PO SCH (09:03)
[2022-05-09] MEDS: KETOROLAC TROMETHAMINE INJ 30 MG/ML VIAL IV PRN (13:42)
--- NOTE | 2022-05-09 18:39 | NUR ---
RN CLOSING NOTE PATIENT REMAINED A/O X4 AND ABLE TO VERBALIZE NEEDS THROUGHOUT SHIFT. IV ACCESS TO RAC REMAINED INTACT AND PATENT AND SALINE LOCKED AT THIS TIME. PATIENT REQUESTED PRN PAIN MEDICATION PRIOR TO PT THERAPY. RECEIVED TORADOL X1 VIA IV PUSH @ 1342. MEDICATION EFFECTIVE. NO OTHER C/O PAIN OR OBSERVATIONS OF ACUTE DISTRESS OBSERVED. TOLERATED PT TREATMENT WELL. CONTINUED TO TOLERATE CARDIAC DIET WELL THROUGHOUT SHIFT. SURGICAL SITE/INCISIONS KEPT DRY WITH NO S/SX OF TRAUMA, BLEEDING, INFECTION. MCCRAY CATHETER OUTPUT OF 500CC ON SHIFT. PATIENT SCHEDULED FOR DISCHARGE AND HEALTH ASSISTANT FROM FACILITY TO [facility] @ 1930. REPORT GIVEN TO RECEIVING NURSE, APPLE @ 1750. PATIENT AWARE OF TRANSFER. WILL ENDORSE TO ONCOMING NURSE. SAFETY PRECAUTIONS IN PLACE WITH BED LOW AND LOCKED. CALL LIGHT WITHIN REACH. WILL CONTINUE TO MONITOR.
--- NOTE | 2022-05-09 19:30 | NUR ---
MS RN OPENING NOTES RECEIVED PATIENT LYING IN BED ASLEEP, EASY TO AROUSE. A/O X4. NO SOB OR NOTED, TOLERATING ROOM AIR WELL. NOT IN ACUTE DISTRESS. C/O MILD PAIN ON HER LEFT HIP. HAS LEFT ANTECUBITAL IV ACCESS #20G AND SALINE LOCKED. NO S/S OF INFILTRATION NOTED. HAS INDWELLING MCCRAY CATHETER DRAINING CLEAR NORMA URINE TO BAG BY GRAVITY. LEFT HIP SURGICAL DRESSING C/D/I. SAFETY MEASURES IN PLACE: BED LOW AND LOCKED, SIDE RAILS UP X2, CALL LIGHT WITHIN REACH. WILL CONTINUE POC.
[2022-05-09] MEDS: MORPHINE SULFATE INJ 2 MG/ML DISP.SYRIN IV PRN (20:23)
--- NOTE | 2022-05-09 20:23 | NUR ---
MS RN NOTES PATIENT REFUSED PRN MORPHINE AND REQUESTED TO HAVE NORCO INSTEAD. WASTED MED WITNESSED BY RAMON PEOPLES RN.
--- NOTE | 2022-05-09 20:24 | NUR ---
MS RN NOTES PATIENT VERBALIZED SHE FEELS A LOT OF PAIN ON HER LEFT HIP WHENEVER SHE GETS MOVED OR AMBULATES. ADMINISTERED PRN NORCO 10/325, VS CHECKED PRIOR TO BEING DISCHARGED, TOLERATED WELL.
--- NOTE | 2022-05-09 20:39 | NUR ---
MS BANK NOTE DESIGNER NOTES PATIENT IN ROOM AWAKE, A/O X4. ABLE TO VERBALIZE NEEDS. BREATHING EVEN AND NON-LABORED ON ROOM AIR. NOT IN APPARENT DISTRESS. C/O PAIN ON HER LEFT HIP, S/P TOTAL LEFT HIP ARTHROPLASTY LAST 05/07/22. SURGICAL DRESSING C/D/I. HAS LEFT ANTECUBITAL IV ACCESS #20G AND SALINE LOCKED. INTACT, PATENT AND FLUSHING. HAS MCCRAY CATHETER URINE OUTPUT OF 500 ML. ALL BELONGINGS ACCOUNTED FOR AND TAKEN BY THE PATIENT. PICKED-UP BY 1 MALE AND 1 FEMALE EMT VIA [facility] @ 2024 TO BE TRANSFERRED TO [facility]. PATIENT DISCHARGE PACKET GIVEN TO EMT. SPOKE WITH ALEIDA MIGUEL AND GAVE REPORT. PATIENT LEFT IN STABLE CONDITION.
== END 2022-05-09 20:30 | DRG 522 ==
LOC: ER 14:47 → TRANSITION 17:28 → MED 23:21
PROC: 0SRB0JZ Replacement of Left Hip Joint with Synthetic Substitute, Open Approach (ICD-10-PCS; principal; 2022-05-07)
DX: S72.012A Unspecified intracapsular fracture of left femur, initial encounter for closed fracture (principal); J30.9 Allergic rhinitis, unspecified; W18.30XA Fall on same level, unspecified, initial encounter; Z20.822 Contact with and (suspected) exposure to COVID-19; I25.2 Old myocardial infarction; Z79.82 Long term (current) use of aspirin; Z86.011 Personal history of benign neoplasm of the brain; Z79.01 Long term (current) use of anticoagulants; I10 Essential (primary) hypertension; Y93.89 Activity, other specified; Z96.641 Presence of right artificial hip joint; Y92.009 Unspecified place in unspecified non-institutional (private) residence as the place of occurrence of the external cause
CPT/HCPCS: 36415; 72170-TC; 73020; 73552; 80048-TC; 80053-TC; 83735-TC; 84100-TC; 85025-TC; 85027-TC; 85610-TC; 85730-TC; 86850-TC; 87081-TC; 93307-TC; 97110-TC; 97116-TC; 97530-TC; A4217; A6209; C1776; C9803; G0378; J0330; J0690; J1100; J1650; J1885; J2270; J2370; J2405; J2704; J3010; J3490; J7030; J7040; J7060